=== PATIENT | female | born 1985 | race Caucasian/White ===

== ENCOUNTER 2017-04-21 17:13 | Emergency (ER) | payer SELFPAY ==
[~2017-04-21] VITALS: Ht 152.4 cm; Wt 59.0 kg
[2017-04-21] MEDS ORDERED: CYCLOBENZAPRINE HCL 10 MG TABLET PO ONE (19:15)
[2017-04-21] MEDS ORDERED: KETOROLAC TROMETHAMINE 60 MG/2 ML VIAL IM ONE (19:15)
[2017-04-21 19:18] VITALS: BP 137/76
== END 2017-04-21 19:48 | disposition home or self-care (01) ==
LOC: EMS 17:14
DX: S46.001A Unspecified injury of muscle(s) and tendon(s) of the rotator cuff of right shoulder, initial encounter (principal); S46.811A Strain of other muscles, fascia and tendons at shoulder and upper arm level, right arm, initial encounter; X50.0XXA Overexertion from strenuous movement or load, initial encounter; Y93.89 Activity, other specified; Y92.89 Other specified places as the place of occurrence of the external cause; Y99.8 Other external cause status
CPT/HCPCS: 96372; 99283; J1885